=== PATIENT | male | born 1955 | race Caucasian/White ===

== ENCOUNTER → 2019-05-09 | Outpatient (CLI) | payer OTHER ==
[~2019-05-09] MED LIST: AMLO-183 PO; SYMB80INH INH
[2019-05-09 18:38] LABS: IMMUNOGLOBULIN M 89.2 MG/DL (40-230)
[2019-05-13 00:06] LABS: D001-IgE D pteronyssinus 1.57 kU/L (Class III); F002-IgE Milk 0.74 kU/L (Class II); F004-IgE Wheat 3.06 kU/L (Class III); F013-IgE Peanut 7.42 kU/L (Class IV); F014-IgE Soybean 2.66 kU/L (Class III); F026-IgE Pork < 0.10 kU/L (Class 0); F027-IgE Beef 0.26 kU/L (Class 0/I); F245-IgE Egg, Whole 0.74 kU/L (Class II); FX02-IgE Food Mix (Sea Foods) Positive (.); G002-IgE Bermuda Grass 2.09 kU/L (Class III); G008-IgE Kentucky Bluegrass 3.98 kU/L (Class IV); M001-IgE Penicillium chrysogen 0.19 kU/L (Class 0/I); M002 IgE Cladosporium herbaru 0.11 kU/L (Class 0/I); M003 IgE Aspergillus fumigatu 0.29 kU/L (Class 0/I); M006-IgE Alternaria alternata 0.66 kU/L (Class II); T001-IgE Maple/Box Elder 3.84 kU/L (Class III); T003-IgE Common Silver Birch 2.11 kU/L (Class III); T006-IgE Cedar, Mountain 2.44 kU/L (Class III); T007-IgE Oak, White 4.36 kU/L (Class IV); T008-IgE Elm, American 5.14 kU/L (Class IV); T015-IgE Ash, White 4.55 kU/L (Class IV); T041-IgE Hickory, White 4.11 kU/L (Class IV); T070-IgE White Mulberry 1.01 kU/L (Class II); W001-IgE Ragweed, Short 3.21 kU/L (Class III); W014-IgE Pigweed, Rough 1.85 kU/L (Class III); W018-IgE Sheep Sorrel 1.73 kU/L (Class III)
== END ==
LOC: M WUC 11:36
PROVIDERS: ATTEND Nurse Practitioner Family
DX: J30.1 Allergic rhinitis due to pollen (principal); J30.81 Allergic rhinitis due to animal (cat) (dog) hair and dander; J30.89 Other allergic rhinitis

== ENCOUNTER → 2021-01-19 | Outpatient (CLI) | payer OTHER ==
--- NOTE | 2021-01-19 13:51 | REP ---
INDICATION: COUGH, ABNORMAL RESULT PULMONARY FUNCTION STUDY. COMPARISON: 04/12/2008 TECHNIQUE: PA and lateral FINDINGS: The superior mediastinal structures are midline. The cardiac silhouette is unremarkable in size, shape, and position. The diaphragmatic surfaces of the lungs are regular, and the costophrenic angles are clear. The pulmonary gonzales are clear. The imaged osseous structures are intact. IMPRESSION: There is no acute cardiopulmonary disease. <Electronically signed by Dale Coleman > 01/19/21 [id number]
== END ==
LOC: M WUC 13:13
PROVIDERS: ATTEND Nurse Practitioner Family
DX: R94.2 Abnormal results of pulmonary function studies (principal); R05 Cough; J45.20 Mild intermittent asthma, uncomplicated; Z87.891 Personal history of nicotine dependence

== ENCOUNTER → 2021-08-29 | Outpatient (REF) | payer OTHER | LOC: M LAB REF 17:26 | PROVIDERS: ATTEND Dermatology | DX: C44.622 Squamous cell carcinoma of skin of right upper limb, including shoulder (principal); L90.5 Scar conditions and fibrosis of skin ==

== ENCOUNTER → 2021-08-31 | Outpatient (CLI) | payer OTHER ==
[2021-08-31 14:15] LABS: IMMUNOGLOBULIN M 94.9 MG/DL (40-230)
== END ==
LOC: M WUC 11:03
PROVIDERS: ATTEND Nurse Practitioner Family
DX: J30.1 Allergic rhinitis due to pollen (principal); J30.81 Allergic rhinitis due to animal (cat) (dog) hair and dander; J30.89 Other allergic rhinitis; H10.45 Other chronic allergic conjunctivitis

== ENCOUNTER 2025-01-27 07:12 | Day surgery (SDC) | payer MEDICARE, OTHER ==
[~2025-01-27] VITALS: Ht 167.6 cm; Wt 78.9 kg
[~2025-01-27 07:12] MED LIST changes: +ATOR40TA75 PO; +LOTR10CA PO; +[UNRECOGNIZED DRUG - OTHER] PO
[2025-01-27] MEDS ORDERED: LIDOCAINE 2% 100MG/5ML SDV (FOR ANES.) As Ordered ONE (07:48)
[2025-01-27] MEDS ORDERED: propofoL 200 MG/20 ML VIAL As Ordered ONE (07:48)
[2025-01-27] MEDS ORDERED: GLUCAGON INJ 1MG VIAL As Ordered ONE (08:34)
[2025-01-27] MEDS ORDERED: ONDANSETRON 4MG 2ML VIAL As Ordered ONE (08:55)
[2025-01-27 09:31] VITALS: BP 120/67; O2SAT 93
== END 2025-01-27 09:41 | disposition home or self-care (01) ==
LOC: M OPP 07:12
PROVIDERS: ATTEND Surgery
DX: Z12.11 Encounter for screening for malignant neoplasm of colon (principal); D12.8 Benign neoplasm of rectum; D12.4 Benign neoplasm of descending colon; D12.5 Benign neoplasm of sigmoid colon; D12.3 Benign neoplasm of transverse colon; K57.30 Diverticulosis of large intestine without perforation or abscess without bleeding
CPT/HCPCS: 45380; 45385; 88305; J1610; J2405